=== PATIENT | male | born 1980 | race Caucasian/White ===

== ENCOUNTER 2017-10-21 11:40 | Emergency (ER) | payer BC ==
[2017-10-21] MEDS ORDERED: Alum Hydrox/Mag Hydrox/Simeth 30 ML, Lidocaine 2% 15 ML PO ONE ×2 (12:20)
--- NOTE | 2017-10-21 12:28 | EDM.PDOC ---
ED HPI GENERAL MEDICAL PROBLEM - General Chief Complaint: Chest Pain Stated Complaint: CHEST PAIN Time Seen by Provider: 10/21/17 12:07 Source of Information: Reports: Patient History Limitations: Reports: No Limitations - History of Present Illness INITIAL COMMENTS - FREE TEXT/NARRATIVE: Patient is a 37-year-old male who presents to the ED complaining of a history of left anterior chest discomfort proximal to the left shoulder. Patient states discomfort came about over the weekend and has been intermittent up until today. Today it's more constant mild in nature with worsening with palpation noted today. Nothing makes it better. Theres been no recent activity or trauma that precipitated this. Questions shortness of breath. No cough or hemoptysis present. No nausea or vomiting, diaphoresis, palpitations, fever, swelling to his lower extremities, pain to his lower legs, acid reflux, or history of DVT/ PE. Pain is mild in nature. He has no first-degree relatives with coronary artery disease. Past medical history includes anxiety and currently on Effexor Surgical history: non contributory. Patient denies smoking history. Alcohol use occasionally. Recreational drug use none. Chest Pain Score (Numeric/FACES): 5 - Related Data Allergies Allergy/AdvReac Type Severity Reaction Status Date / Time No Known Allergies Allergy Verified 10/21/17 11:46 Home Meds: Home Meds Amoxicillin. 10/21/17 [History] Venlafaxine [Effexor] 75 mg PO DAILY 10/21/17 [History] ED ROS GENERAL - Review of Systems Review Of Systems: ROS reveals no pertinent complaints other than HPI. ED EXAM, GENERAL - Physical Exam Exam: See Below Exam Limited By: No Limitations General Appearance: Alert, WD/WN, No Apparent Distress Ears: Hearing Grossly Normal Nose: Normal Inspection Throat/Mouth: Normal Voice, No Airway Compromise Neck: Normal Inspection, Supple Respiratory/Chest: No Respiratory Distress, Lungs Clear, Normal Breath Sounds, No Accessory Muscle Use, Other (tenderness to the anterior lateral chest proximal to the shoulder worsened with palpation and adduction of the upper extremities against resistance. ) Cardiovascular: Normal Peripheral Pulses, Regular Rate, Rhythm, No Murmur Peripheral Pulses: 4+: Radial (L), Radial (R) GI/Abdominal: Normal Bowel Sounds, Soft, Non-Tender, No Organomegaly, No Distention Extremities: Normal Inspection, Normal Range of Motion, Non-Tender, No Pedal Edema Neurological: Alert, Oriented, CN II-XII Intact, Normal Cognition, No Motor/ Sensory Deficits Psychiatric: Normal Affect, Normal Mood Skin Exam: Warm, Dry, Intact, Normal Color, No Rash Course - Vital Signs Last Recorded V/S: Last Vital Signs Temp 99.6 F 10/21/17 11:48 Pulse 88 10/21/17 11:48 Resp 20 10/21/17 11:48 BP 136/101 H 10/21/17 11:48 Pulse Ox 95 10/21/17 11:48 - Orders/Labs/Meds Orders: Active Orders 24 hr Category Date Time Status CXR [Chest 1V Frontal] [CR] Stat Exams 10/21/17 12:21 Taken Labs: Laboratory Tests 10/21/17 10/21/17 Range/Units 12:35 12:35 WBC 5.81 (4.23-9.07) K/mm3 RBC 5.16 (4.63-6.08) M/mm3 Hgb 14.3 (13.7-17.5) gm/L Hct 42.5 (40.1-51.0) % MCV 82.4 (79.0-92.2) fl MCH 27.7 (25.7-32.2) pg MCHC 33.6 (32.2-35.5) g/dl RDW Std Deviation 40.6 (35.1-43.9) fL Plt Count 277 (163-337) K/mm3 MPV 10.7 (9.4-12.3) fl Neutrophils % (Manual) 38 L (40-60) % Band Neutrophils % 0 (0-10) % Lymphocytes % (Manual) 53 H (20-40) % Atypical Lymphs % 0 % Monocytes % (Manual) 5 (2-10) % Eosinophils % (Manual) 4 (0.8-7.0) % Basophils % (Manual) 0 L (0.2-1.2) Platelet Estimate Adequate RBC Morph Comment Normal Sodium 140 (136-145) mEq/L Potassium 3.5 (3.5-5.1) mEq/L Chloride 104 (98-107) mEq/L Carbon Dioxide 25 (21-32) mEq/L Anion Gap 14.5 (5-15) BUN 22 H (7-18) mg/dL Creatinine 0.9 (0.7-1.3) mg/dL Est Cr Clr Drug Dosing 120.85 mL/min Estimated GFR (MDRD) > 60 (>60) mL/min BUN/Creatinine Ratio 24.4 H (14-18) Glucose 116 H (74-106) mg/dL Calcium 9.2 (8.5-10.1) mg/dL Total Bilirubin 0.2 (0.2-1.0) mg/dL AST 32 (15-37) U/L ALT 67 H (16-63) U/L Alkaline Phosphatase 81 (46-116) U/L Troponin I < 0.017 (0.00-0.056) ng/mL C-Reactive Protein 0.3 (<1.0) mg/dL Total Protein 7.6 (6.4-8.2) g/dl Albumin 4.1 (3.4-5.0) g/dl Globulin 3.5 gm/dL Albumin/Globulin Ratio 1.2 (1-2) Meds: Medications Discontinued Medications Generic Name Dose Route Start Last Admin Trade Name Freq PRN Reason Stop Dose Admin Al Hydroxide/Mg Hydroxide 30 0 ml 10/21/17 12:20 10/21/17 12:47 ml/ Lidocaine HCl 15 ml PO 10/21/17 12:21 45 ml ONETIME ONE Administration - Re-Assessments/Exams Free Text/Narrative Re-Assessment/Exam: Patient on examination has stable vital signs. PERC rule is negative. Complains of left-sided anterior/lateral chest discomfort proximal to the shoulder with minimal increase with adduction of the upper extremities against resistance. Suspect this is not cardiac related. Initial labs and studies will include CBC, chem 14, CRP, chest x-ray, and troponin. I will also order a GI cocktail by mouth. EKG sinus rhythm at a rate of 89 with a QTC of [address] changes noted. CXR: No acute findings noted. Final interpretation is pending. Reassessment, patient had no significant improvements with the GI cocktail. Suspect this is chest wall in origin. VSS stable. Return precautions discussed with patient. Discharge instructions as documented. Departure - Departure Time of Disposition: 13:18 Disposition: Home, Self-Care 01 Condition: Good Clinical Impression: Anterior chest wall pain Instructions: Chest Wall Pain, [id number] Referrals: PCP,Not In Area [Primary Care Provider] - Forms: ED Department Discharge, ED Return to Work/School Form Additional Instructions: Cause of discomfort is muscle skeletal in nature. Utilize anti-inflammatories such as ibuprofen 600 mg every 6 hours or Aleve 1-2 tabs twice a day. Do not take both the same time. Refrain from any activities that cause worsening pain. Follow-up with primary care provider as needed. Return to the ED if you develop any new or worsening symptoms. - My Orders Last 24 Hours: My Active Orders 10/21/17 12:21 CXR [Chest 1V Frontal] [CR] Stat - Assessment/Plan Last 24 Hours: My Active Orders 10/21/17 12:21 CXR [Chest 1V Frontal] [CR] Stat
--- NOTE | 2017-10-22 09:18 | CR ---
Chest: Portable view of the chest was obtained. Comparison: No prior chest x-ray. Heart size and mediastinum are normal. Lungs are clear. Bony structures are grossly intact. Impression: 1. Nothing acute is seen on portable chest x-ray. Diagnostic code #1
== END 2017-10-21 13:43 | disposition home or self-care (01) ==
LOC: JD.ED 11:40
DX: R07.89 Other chest pain (principal)
CPT/HCPCS: 36415; 71045; 80053; 84484; 85007; 85027; 86140; 99285; A9270; 99284